=== PATIENT | male | born 1980 | race African-American/Black ===

== ENCOUNTER 2024-11-07 18:27 | Emergency (ER) | payer MEDICAID ==
[~2024-11-07] VITALS: Ht 193 cm; Wt 68.2 kg
[2024-11-07 18:31] VITALS: TEMP 98.9
[2024-11-07] MEDS ORDERED: ALBU2.5V39 NEB (18:35)
[2024-11-07 18:59] LABS: COVID AG,FIA SOURCE NASAL SWAB
[2024-11-07 19:25] LABS: INFLUENZA TYPE A NEGATIVE FOR TYPE A (NEGATIVE); INFLUENZA TYPE B NEGATIVE FOR TYPE B (NEGATIVE); SARS-COV2 (COVID) ANTIGEN,FIA Negative (Negative)
[2024-11-07] MEDS ORDERED: PRED-554 PO (22:25)
[2024-11-07] MEDS ORDERED: AMOX-457 PO (22:25)
[2024-11-07] MEDS ORDERED: ALBU18HF12 IH (22:25)
[2024-11-07] MEDS ORDERED: PredniSONE 20 MG TABLET PO ONE (22:30)
[2024-11-07] MEDS ORDERED: AMOX TR/POT CLAV 875 MG/125 MG TABLET PO ONE (22:30)
[2024-11-07] MEDS: ALBUTEROL SULFATE 2.5 MG/0.5 ML NEB SOLUTION NEB ONE (22:52)
[2024-11-07] MEDS: IPRATROPIUM BROMIDE 0.5 MG/2.5 ML NEB SOLUTION NEB ONE (22:52)
[2024-11-07 22:55] VITALS: PULSE 86; RESP 18; O2SAT 98
[2024-11-07 23:08] VITALS: BP 136/73; PULSE 79; RESP 15; O2SAT 98
== END 2024-11-07 23:13 | disposition home or self-care (01) ==
LOC: EMS 18:27
DX: J18.9 Pneumonia, unspecified organism (principal); J45.909 Unspecified asthma, uncomplicated; Z20.822 Contact with and (suspected) exposure to COVID-19
CPT/HCPCS: 71045; 87804; 94640; 99284; J7613

== ENCOUNTER 2024-11-14 09:38 | Emergency (ER) | payer MEDICAID ==
[~2024-11-14] VITALS: Ht 190.5 cm; Wt 66.4 kg
[~2024-11-14 09:38] MED LIST: ALBU18HF12 IH; ALBU2.5V39 NEB; AMOX-457 PO; PRED-554 PO
[2024-11-14 09:54] VITALS: TEMP 98.4
[2024-11-14] MEDS: ONDANSETRON HCL 4 MG/2 ML VIAL IVP ONE (11:07)
[2024-11-14] MEDS: KETOROLAC TROMETHAMINE 30 MG/ML VIAL IVP ONE ×2 (11:08→13:32)
[2024-11-14] MEDS: METHOCARBAMOL 100 MG/ML 10 ML VIAL IVP ONE (11:08)
[2024-11-14] MEDS: MORPHINE SULFATE 4 MG/ML SYRINGE IVP ONE (11:08)
[2024-11-14 11:25] LABS: BASOPHILS % (AUTO) 0.4 % (0.0-2.0); EOSINOPHILS % (AUTO) 0.6 % (1.0-6.0); HEMATOCRIT 40.6 % (41-53); HEMOGLOBIN 13.9 g/dL (13.5-17.5); LYMPHOCYTES # (AUTO) 2.6 K/uL (1.0-4.8); LYMPHOCYTES % (AUTO) 29.2 % (22.0-44.0); MEAN CORPUSCULAR HEMOGLOBIN 36.8 pg (26.0-34.0); MEAN CORPUSCULAR HGB CONC 34.2 G/dL (31.0-37.0); MEAN CORPUSCULAR VOLUME 108 fL (80-100); MONOCYTES # (AUTO) 0.7 K/uL (0.1-1.0); MONOCYTES % (AUTO) 7.7 % (2.0-9.0); NEUTROPHILS # (AUTO) 5.5 K/uL (1.8-7.7); NEUTROPHILS % (AUTO) 62.1 % (40.0-70.0); PLATELET COUNT (AUTO) 256 K/uL (150-450); RED BLOOD CELL COUNT(AUTO) 3.77 MIL/uL (4.50-5.90); RED CELL DISTRIBUTION WIDTH 13.7 % (11.5-14.5); WHITE BLOOD COUNT (AUTO) 8.9 K/uL (4.5-11.0)
[2024-11-14 11:33] LABS: ANION GAP 9 mmol/L (8-16); CALCIUM, TOTAL 8.8 mg/dL (8.8-10.5); CARBON DIOXIDE 29 mmol/L (22-29); CHLORIDE 104 mmol/L (98-107); CREATININE 0.82 mg/dL (0.60-1.30); GLOMERULAR FILTR. RATE CALC > 60 mL/min (>60); GLUCOSE,RANDOM 88 mg/dL (70-110); POTASSIUM 3.8 mmol/L (3.5-5.1); SODIUM SERUM 142 mmol/L (136-145); UREA NITROGEN, BLOOD 18 mg/dL (7-18)
[2024-11-14 12:05] LABS: RBC MORPHOLOGY COMMENT ABNORMAL RBC MORPH
[2024-11-14] MEDS ORDERED: METH-812 PO (13:32)
[2024-11-14] MEDS ORDERED: POLY119P3 PO (13:32)
[2024-11-14] MEDS ORDERED: HYDR-4062 PO (13:32)
[2024-11-14] MEDS ORDERED: IBUP-1554 PO (13:32)
[2024-11-14 13:55] VITALS: BP 132/88; PULSE 85; RESP 18; O2SAT 97
== END 2024-11-14 13:57 | disposition home or self-care (01) ==
LOC: EMS 09:39
DX: M54.50 Low back pain, unspecified (principal); J45.909 Unspecified asthma, uncomplicated; F17.210 Nicotine dependence, cigarettes, uncomplicated
CPT/HCPCS: 99284; 96374; 96375; 80048; 85025; 36415; 72100; 73521; 96376; J1885; J2270; J2405; J2800

== ENCOUNTER 2025-07-17 10:44 | Emergency (ER) | payer MEDICAID ==
[~2025-07-17] VITALS: Ht 190.5 cm; Wt 65.9 kg
[~2025-07-17 10:44] MED LIST changes: +HYDR-4062 PO; +IBUP-1554 PO; +METH-812 PO; +POLY119P3 PO; -PRED-554 PO
[2025-07-17 10:45] VITALS: TEMP 98.1
[2025-07-17] MEDS: KETOROLAC TROMETHAMINE 60 MG/2 ML VIAL IM ONE (12:29)
[2025-07-17] MEDS: ACETAMINOPHEN 500 MG TABLET PO ONE (12:30)
[2025-07-17] MEDS ORDERED: ACET-66 PO (13:24)
[2025-07-17] MEDS ORDERED: METH-659 PO (13:24)
[2025-07-17 13:43] VITALS: BP 102/71; PULSE 89; RESP 18; O2SAT 95
== END 2025-07-17 13:48 | disposition home or self-care (01) ==
LOC: EMS 10:45
DX: S39.012A Strain of muscle, fascia and tendon of lower back, initial encounter (principal); J45.909 Unspecified asthma, uncomplicated; F17.210 Nicotine dependence, cigarettes, uncomplicated; X50.0XXA Overexertion from strenuous movement or load, initial encounter; Y93.55 Activity, bike riding; Y92.89 Other specified places as the place of occurrence of the external cause; Y99.8 Other external cause status
CPT/HCPCS: 99283; 96372; J1885